=== PATIENT | male | born 1955 | race Caucasian/White ===

== ENCOUNTER 2022-12-20 07:52 | Emergency (ER) | payer MEDICARE, OTHER, SELFPAY ==
[2022-12-20 08:02] VITALS: BP 154/90; PULSE 56; RESP 16; TEMP 36.4; O2SAT 93; BMI 38.5
--- NOTE | 2022-12-20 08:11 | ED.BACK1 ---
HPI - Back Pain/Injury General Chief Complaint: Back Pain/Injury Stated Complaint: BACK PAIN Time Seen by Provider: 12/20/22 08:01 Source: patient Mode of arrival: Wheelchair Limitations: no limitations History of Present Illness HPI Narrative: 67-year-old male presents for lower back pain. He's had it for about three weeks and it hurts more to move. It radiates into his groin and down to his knee. There is been no trauma and the pain is mostly in the right lower back. It is severe. he states he's had some back issues his whole life but never had surgery or any severe injuries. Related Data Home Medications Medication Instructions Recorded Confirmed carvedilol 25 mg tablet 25 mg PO Q12H 12/20/22 12/20/22 Previous Rx's Medication Instructions Recorded cyclobenzaprine 10 mg tablet 10 mg PO TID PRN muscle spasm #20 12/20/22 tabs oxycodone-acetaminophen 5 mg-325 1 tab PO Q6H PRN pain #20 tabs 12/20/22 mg tablet (Percocet) Allergies Allergy/AdvReac Type Severity Reaction Status Date / Time Sulfa (Sulfonamide Allergy Intermediate Verified 12/20/22 08:06 Antibiotics) Review of Systems ROS Narrative A ten point review of systems is negative except as noted above. PFSH PFSH Social History Smoking status: Never smoker Exam Narrative Exam Narrative: Nurses note and vital signs reviewed and patient is not hypoxic. General: The patient appears uuncomfortable. Skin: Warm, dry, no pallor noted. There is no rash noted. Head: Normocephalic, atraumatic Eye: Normal conjunctiva, no drainage Ears, Nose, Mouth, and Throat: oral mucosa is moist. Nares patent. Cardiovascular: Regular Rate and Rhythm Respiratory: Patient is in no distress, no accessory muscle use, lungs are clear to auscultation, no wheezing, rales or rhonchi Back: there is no bruise rash or abrasion. He has no palpable tenderness. GI: obese and nontender Musculoskeletal: The patient has no evidence of calf tenderness, no pitting edema, symmetrical pulses noted bilaterally Neurological: A&O, normal speech Psychiatric: Cooperative Constitutional Vital Signs, click to edit/add: Last Vital Signs Temp 97.6 F 12/20/22 08:02 Pulse 56 L 12/20/22 08:02 Resp 16 09/24/23 08:02 BP 154/90 H 12/20/22 08:02 Pulse Ox 93 L 12/20/22 08:02 O2 Del Method Room Air 12/20/22 08:02 Course Vital Signs Vital signs: Vital Signs Temperature 97.6 F 12/20/22 08:02 Pulse Rate 56 L 12/20/22 08:02 Respiratory Rate 16 12/20/22 08:02 Blood Pressure 154/90 H 12/20/22 08:02 Pulse Oximetry 93 L 12/20/22 08:02 Oxygen Delivery Method Room Air 12/20/22 08:02 Temperature 97.6 F 12/20/22 08:02 Pulse Rate 56 L 12/20/22 08:02 Respiratory Rate 16 12/20/22 08:02 Blood Pressure 154/90 H 12/20/22 08:02 Pulse Oximetry 93 L 12/20/22 08:02 Oxygen Delivery Method Room Air 12/20/22 08:02 MDM - Back Pain/Injury MDM Narrative Medical decision making narrative: CT of lumbar spine results were discussed with the patient. He'll be treated with Percocet and Flexeril. He'll follow-up with his doctor and has an appointment in two days. He was given Toradol and Norflex here and feels improved. Treatment diagnosis and follow-up were discussed with the patient and his . Differential Diagnosis Differential diagnosis: Likely lumbar radiculopathy, sciatica and strain of lumbar region Imaging Data lumbar CT: Radiologist's impression: Procedure: CT lumbar spine wo con CT scan lumbar spine without contrast 12/20/2022. HISTORY:The patient has had low back pain for the past 3 weeks which has become worse this morning. Difficulty walking. Right-sided low back pain. atraumatic right lower back pain COMPARISON: CT scan abdomen and pelvis 11/22/2018. TECHNIQUE: Multiple contiguous axial CT images of the lumbar spine were obtained without contrast. Sagittal and coronal reformatted images were made. Dose reduction techniques were achieved by using automated exposure control and/or adjustment of mA and/or kV according to patient size and/or use of iterative reconstruction technique. FINDINGS: There are severe degenerative changes again seen of the visualized upper sacroiliac joints and there is osseous fusion again seen across the anterior aspect of the right sacroiliac joint. A mild rotatory levoconvex scoliosis of the lumbar spine is again seen centered at the L2-L3 level. There is a similar appearance of retrolisthesis of L4 on L5 of 2 mm. No compression fracture is seen. There is a similar appearance of moderate to severe discogenic disease at the L4-L5 and L5-S1 levels and moderate to severe discogenic disease on the right at the L2-L3 level. There is mild discogenic disease at the other levels of the lumbar spine. L1-L2 level: A small posterior disc-osteophyte complex and severe facet joint arthropathy are again seen, but there is no significant spinal canal stenosis or foraminal narrowing. L2-L3 level: A posterior disc-osteophyte complex again appears to combine with severe facet joint arthropathy to again cause probable mild spinal canal stenosis. No significant foraminal narrowing is seen. L3-L4 level: A posterior disc-osteophyte complex again appears to combine with severe facet joint arthropathy to cause probable mild spinal canal stenosis and at least moderate narrowing of the lateral recesses bilaterally. There also again appears to be moderate left and moderate to severe right foraminal narrowing. L4-L5 level: A posterior disc-osteophyte complex again appears to combine with severe facet joint arthropathy to cause probable mild spinal canal stenosis and moderate to severe narrowing of the lateral recesses bilaterally. There is also a similar appearance of moderate to severe bilateral foraminal narrowing. L5-S1 level: A posterior disc-osteophyte complex again appears to cause severe left foraminal narrowing. There is no significant right foraminal narrowing. This disc-osteophyte complex also again appears to combine with severe facet joint arthropathy to cause probable severe narrowing of the right lateral recess in the region of the descending right S1 nerve root. No central spinal canal stenosis is seen. IMPRESSION: 1. No fracture of the lumbar spine is seen. 2. There is a similar appearance of multilevel degenerative changes of the lumbar spine when compared to the prior CT scan of the abdomen and pelvis of 11/22/2018 with multilevel spinal canal stenosis, multilevel lateral recess narrowing, and multilevel foraminal narrowing as described above. Electronically authenticated by: LEIF [place] Date: 12/20/2022 09:10 Discharge Plan Discharge Chief Complaint: Back Pain/Injury Clinical Impression: Low back pain Patient Disposition: Home, Self-Care Time of Disposition Decision: 09:24 Condition: Good Mode of Transportation: Private Vehicle Prescriptions / Home Meds: New oxycodone-acetaminophen [Percocet] 5-325 mg tablet 1 tab PO Q6H PRN (Reason: pain) Qty: 20 0RF cyclobenzaprine 10 mg tablet 10 mg PO TID PRN (Reason: muscle spasm) Qty: 20 0RF No Action carvedilol 25 mg tablet 25 mg PO Q12H Instructions: Acute Low Back Pain (ED) Stand Alone Forms: Portal Instructions Referrals: SHERRY CALLOWAY [Primary Care Provider] - 1 week
[2022-12-20] MEDS: ORPHENADRINE 60 MG/ 2 ML VIAL IM (08:20)
[2022-12-20] MEDS: KETOROLAC TROMETHAMINE 60 MG/2 ML VIAL IM (08:21)
[2022-12-20 09:38] VITALS: BP 135/90; PULSE 78; RESP 16; TEMP 36.7; O2SAT 95
== END 2022-12-20 09:40 | disposition home or self-care (01) ==
PROVIDERS: Emergency Provider Emergency Medicine; PCP Family Medicine
DX: M54.50 Low back pain, unspecified (principal); Z79.899 Other long term (current) drug therapy
CPT/HCPCS: 72131; 96372; 99284